=== PATIENT | male | born 1950 | race Caucasian/White ===

== ENCOUNTER 2019-05-15 11:37 | Emergency (ER) | payer OTHER ==
[~2019-05-15] VITALS: Ht 177.8 cm; Wt 72.6 kg
[2019-05-15 12:11] LABS: ABSOLUTE EOSINOPHILS 0.1 thou/uL (0.0-0.7); ABSOLUTE LYMPHOCYTES 1.1 thou/uL (0.8-5.3); ABSOLUTE MONOCYTES 0.4 thou/uL (0.0-1.2); ABSOLUTE NEUTROPHILS 6.8 thou/uL (1.6-8.1); BASOPHILS 0.4 %; EOSINOPHILS 0.8 %; HEMATOCRIT 43.3 % (42.0-52.0); HEMOGLOBIN 14.7 gm/dL (14.0-18.0); LYMPHOCYTES 13.1 %; MCH 33.1 pg (26.0-34.0); MCV 97.5 fL (80.0-100.0); MONOCYTES 4.9 %; MPV 8.9 fl. (7.2-11.1); NUCLEATED RBCS 0 /100WBC; PLATELET COUNT* 236 thou/uL (150-400); POLYS 80.8 %; RBC 4.44 mil/uL (4.50-6.00); RDW-CV 13.8 % (10.5-14.5); WBC 8.4 thou/uL (4.0-11.0)
[2019-05-15 12:20] LABS: ANION GAP 9 mmol/L (7-16); BUN 13 mg/dL (7-18); CALCIUM 9.3 mg/dL (8.5-10.1); CHLORIDE 106 mmol/L (98-107); CO2 26 mmol/L (21-32); CREATININE 0.9 mg/dL (0.6-1.3); GLUCOSE 115 mg/dL (70-99); POTASSIUM 4.1 mmol/L (3.5-5.1); SODIUM 141 mmol/L (136-145)
[2019-05-15 12:30] LABS: ALBUMIN 3.3 g/dL (3.4-5.0); ALKALINE PHOSPHATASE 241 U/L (46-116); LIPASE 58 U/L (73-393); SGOT 186 U/L (15-37); SGPT 184 U/L (30-65); TOTAL BILIRUBIN 0.6 mg/dL (<0.1-1.0); TOTAL PROTEIN 6.7 g/dL (6.4-8.2); TROPONIN-I LEVEL <0.06 ng/mL (<0.06)
[2019-05-15] MEDS ORDERED: ZOFRAN ODT4 MG DISSOLVE (14:26)
[2019-05-15] MEDS ORDERED: NORCO 5-325 TA1 EAC1 PO (14:26)
[2019-05-15 14:45] VITALS: BP 168/69
--- NOTE | 2019-05-17 14:49 | EKG ---
[place] [address] ELECTROCARDIOGRAM REPORT Name: KIERRA DAWKINS Room: [facility]#: [id number] Admission: 05/15/19 Attend Phys: Discharge: 05/15/19 Date of : 46 Report #: [id number] THIS REPORT FOR: //name// [facility] ED Test Date: 2019-05-15 Test Time: 11:43:31 Pat Name: KIERRA DAWKINS Department: Room: Gender: [employer]: : 1950 Requested By: Buddy Renner Order Number: [id number] MD: Tyron Vázquez Measurements Intervals [place] Rate: 67 P: 59 AR: 156 QRS: -49 QRSD: 100 T: 57 QT: 390 QTc: 412 Interpretive Statements Sinus rhythm Ventricular bigeminy LAD, consider left anterior fascicular block Borderline low voltage, extremity leads RSR' in V1 or V2, right VCD or RVH No previous ECG available for comparison Electronically Signed On 05-17-2019 14:49:04 CDT by Tyron Vázquez [email or web address] <ELECTRONICALLY SIGNED> By: Tyron Vázquez MD, [facility] 05/17/19 1449 1143 1143 Tyron Vázquez MD, [facility] /EPI
== END 2019-05-15 14:47 | disposition home or self-care (01) ==
LOC: M.ERS 11:37
PROVIDERS: Emergency Medicine Emergency Medical Services
DX: R10.13 Epigastric pain (principal); J44.9 Chronic obstructive pulmonary disease, unspecified; F17.210 Nicotine dependence, cigarettes, uncomplicated